=== PATIENT | female | born 1965 | race Caucasian/White ===

== ENCOUNTER 2020-09-21 20:52 | Emergency (ER) | payer BC ==
[~2020-09-21] VITALS: Ht 160 cm; Wt 113.4 kg
[2020-09-21] MEDS ORDERED: ALBUTEROL/IPRATROPIUM 3 ML NEB NEB ONE (21:30)
[2020-09-21] MEDS ORDERED: AZITHROMYCIN 250 MG TAB PO ONE (22:45)
[2020-09-21] MEDS ORDERED: CEFTRIAXONE SOD 1 GM VIAL IV SCH (22:45)
[2020-09-21] MEDS ORDERED: CEFDINIR300 MG PO (22:55)
[2020-09-21] MEDS ORDERED: POTASSIUM CHLORIDE 20 MEQ TAB CR PO ONE (22:56)
[2020-09-21] MEDS ORDERED: AZITHROMYCIN250 MG PO (22:57)
[2020-09-21] MEDS ORDERED: DEXAMETHASONE SOD PHOS 10 MG/1 ML VIAL IV ONE (23:00)
[2020-09-21] MEDS ORDERED: DEXAMETHASONE SOD PHOS INJ 4 MG/ML VIAL ONE (23:03)
== END 2020-09-21 23:29 | disposition home or self-care (01) ==
LOC: FSED 20:59
DX: R05 Cough (principal); J12.9 Viral pneumonia, unspecified; E11.65 Type 2 diabetes mellitus with hyperglycemia; I10 Essential (primary) hypertension; E66.9 Obesity, unspecified
CPT/HCPCS: 71046; 99284; J0696; J1100

== ENCOUNTER 2024-06-27 12:18 | Emergency (ER) | payer BC ==
[~2024-06-27] VITALS: Ht 160 cm; Wt 113.4 kg
[~2024-06-27 12:18] MED LIST: AZITHROMYCIN250 MG PO; CEFDINIR300 MG PO
[2024-06-27 12:20] VITALS: TEMP 98.4
[2024-06-27 13:05] LABS: BASOPHILS % 0.7 % (0.0-1.0); EOSINOPHILS # (AUTO) 0.4 (0.0-0.4); HEMATOCRIT 39.4 % (34.2-44.1); HEMOGLOBIN 12.7 g/dL (12.0-16.0); LYMPHOCYTES # (AUTO) 2.3 (1.0-3.2); MEAN CORPUSCULAR HEMOGLOBIN 27.3 pg (28-32); MEAN CORPUSCULAR HGB CONC 32.2 g/dL (31-35); MEAN CORPUSCULAR VOLUME 84.7 fL (81-99); MONOCYTES # (AUTO) 0.4 (0.2-0.8); MONOCYTES % 7.1 % (4.4-11.3); NEUTROPHILS # (AUTO) 2.4 (2.1-6.9); PLATELET COUNT 220 x10e3/uL (140-360); RED BLOOD COUNT 4.65 x10e6/uL (3.6-5.1); RED CELL DISTRIBUTION WIDTH 14.4 % (11.7-14.4); WHITE BLOOD COUNT 5.49 x10e3/uL (4.8-10.8)
[2024-06-27 13:10] LABS: INR 0.97; PROTHROMBIN TIME 13.5 seconds (11.9-14.5)
[2024-06-27 13:11] LABS: PARTIAL THROMBOPLASTIN TIME 29.7 seconds (23.8-35.5)
[2024-06-27 13:19] LABS: ALANINE AMINOTRANSFERASE 35 IU/L (0-55); ALBUMIN 3.6 g/dL (3.5-5.0); ALBUMIN/GLOBULIN RATIO 1.1 (0.8-2.0); ALKALINE PHOSPHATASE 49 IU/L (40-150); ANION GAP 15.4 mmol/L (8-16); BILIRUBIN,TOTAL 0.7 mg/dL (0.2-1.2); BLOOD UREA NITROGEN 14 mg/dL (7-26); BUN/CREATININE RATIO 19 (6-25); CALCIUM 8.9 mg/dL (8.4-10.2); CARBON DIOXIDE 24 mmol/L (22-29); CHLORIDE 110 mmol/L (98-107); CREATINE KINASE 100 IU/L (29-168); CREATININE, SERUM 0.74 mg/dL (0.57-1.11); EST GLOMERULAR FILTRATION RATE 94 ML/MIN (>=60); GLUCOSE 94 mg/dL (74-118); MAGNESIUM 1.8 MG/DL (1.3-2.1); POTASSIUM 3.4 mmol/L (3.5-5.1); SODIUM 146 mmol/L (136-145); TOTAL PROTEIN 6.9 g/dL (6.5-8.1)
[2024-06-27 13:26] LABS: TROPONIN I < 0.001 ng/mL (0-0.300)
[2024-06-27 13:36] LABS: CORONAVIRUS COVID-19 AG POSITIVE (NEGATIVE); INFLUENZA A AG NEGATIVE (NEGATIVE); INFLUENZA B AG NEGATIVE (NEGATIVE)
[2024-06-27 13:54] VITALS: PULSE 72; RESP 15; O2SAT 98
[2024-06-27] MEDS: ONDANSETRON HCL INJ 2MG/ML 2ML 2 MG/ML VIAL IV STA (14:10)
[2024-06-27] MEDS: SODIUM CHLORIDE 0.9% 1000ML 1,000 ML IV STA (14:10)
[2024-06-27] MEDS: DIAZEPAM INJ 5 MG/ML 2 ML IV ONE (14:11)
[2024-06-27] MEDS: MECLIZINE HCL 12.5 MG TAB PO ONE (14:11)
== END 2024-06-27 15:16 | disposition home or self-care (01) ==
LOC: ER 12:30
DX: R42 Dizziness and giddiness (principal); U07.1 COVID-19; I10 Essential (primary) hypertension; E11.9 Type 2 diabetes mellitus without complications; M19.09 Primary osteoarthritis, other specified site
CPT/HCPCS: 36415; 70450; 71045; 72125; 80053; 82550; 83735; 84484; 85025; 85610; 85730; 87428; 93005; 99284; J2405; J3360; J7030; J8597